=== PATIENT | female | born 1980 | race Caucasian/White ===

== ENCOUNTER 2021-05-21 12:02 | Outpatient (REF) | payer MEDICAID, SELFPAY ==
[2021-05-21 13:19] LABS: Alanine Aminotransferase 14 U/L (0-31); Alkaline Phosphatase 52 U/L (39-117); Aspartate Amino Transferase 14 U/L (5-31); Bilirubin Direct < 0.2 mg/dL (0.0-0.5); Bilirubin Total 0.3 mg/dL (0.0-1.0); Total Protein 6.9 g/dL (6.5-8.0)
[2021-05-27 00:51] LABS: FIB-ALT 12 U/L (6-29); FIB-Alpha-2-Macroglobulin 218 mg/dL (106-279); FIB-Apolipoprotein A1 148 mg/dL (101-198); FIB-GGT 16 U/L (3-55); FIB-Haptoglobin 163 mg/dL (43-212); FIB-Total Bilirubin 0.3 mg/dL (0.2-1.2); Liver Fibrosis Score 0.08; Liver Fibrosis Stage F0; Nec Inflam Act Grade A0; Nec Inflam Act Score 0.03
[2021-05-28 12:21] LABS: Alpha Fetoprotein 1.9 ng/mL
== END 2021-05-21 12:03 | disposition home or self-care (01) ==
LOC: HO.LAB 12:02
PROVIDERS: PCP Student in an Organized Health Care Education/Training Program; Visit Provider Internal Medicine
DX: Z86.19 Personal history of other infectious and parasitic diseases (principal)
CPT/HCPCS: 36415; 80076; 81596; 82105

== ENCOUNTER 2021-06-11 10:27 | Outpatient (REF) | payer MEDICAID, SELFPAY ==
--- NOTE | ~2021-06-11 | US_ITS ---
EXAMINATION: US ABDOMEN COMPLETE CLINICAL INFORMATION: History of hepatitis C. COMPARISON: None TECHNIQUE: Real-time imaging of the abdominal viscera. FINDINGS: PANCREAS: Normal. ABDOMINAL AORTA: The proximal, mid, and distal segments are normal in caliber. INFERIOR VENA CAVA: Visualized portions are normal. LIVER: Normal. The liver is normal in size. The liver contour is normal. Parenchymal echogenicity is normal. No focal hepatic lesion. There is no intrahepatic biliary duct dilatation seen. GALLBLADDER: Although not discretely interrogated by the supervisor broadloom there is suspected to be probable shadowing gallstone, image 43 and 42. Negative sonographic Kinsey sign. No wall thickening or pericholecystic fluid to suggest acute cholecystitis. COMMON BILE DUCT: Common bile duct measures mildly greater than expected for age measuring 0.7 cm in diameter although is this does not appear significantly changed from 2009 where it measured 0.7 cm. RIGHT KIDNEY: Normal. No hydronephrosis. No renal calculi or focal parenchymal lesions. The kidney measures 11.4 cm in maximum dimension. LEFT KIDNEY: Normal. No hydronephrosis. No renal calculi or focal parenchymal lesions. The kidney measures 11.1 cm in maximum dimension. SPLEEN: Spleen is enlarged. The spleen measures 13.4 cm in maximum dimension. FREE FLUID: None. US/US abdomen complete IMPRESSION: Unremarkable sonographic appearance of the liver. No discrete liver lesion. Although not discretely interrogated by the supervisor broadloom there is suspected to be cholelithiasis without secondary findings of acute cholecystitis. Common bile duct measures minimally greater than expected for age at 7 mm although some of this appears similar to 2009. Mild splenomegaly
== END 2021-06-11 10:28 | disposition home or self-care (01) ==
LOC: HO.US 10:27
PROVIDERS: Visit Provider Internal Medicine
DX: Z86.19 Personal history of other infectious and parasitic diseases (principal)
CPT/HCPCS: 76700

== ENCOUNTER 2021-06-26 09:03 | Day surgery (SDC) | payer MEDICAID, SELFPAY ==
--- NOTE | 2021-06-25 09:49 | HO.ANESPROP2 ---
Documented by User: Havne Jacob NP 06/25/21 09:50 HPI - Anesthesia Eval Consult details Narrative: 40yo F for Colonoscopy Suboxone daily [facility] Past Medical History Medical History Anxiety and depression History of COVID-19 History of intravenous drug abuse Hx of hepatitis C Smoker Social History Social History Patient Tobacco Use Status: Current everyday Tobacco user Tobacco use type: Cigarette Cigarettes Per Day: 15 Smoked in Last 30 Days: Yes Use of substances other than those prescribed or required for medical reasons: No Are you DNR?: No Advance Directives: No Advance Directives Information Provided: Yes Recently lost weight without trying: No Nutrition Risks: No Nutritional Risk Meds Allergies Allergy/AdvReac Type Severity Reaction Status Date / Time azithromycin AdvReac Mild Vomiting Verified 06/26/21 09:25 Home Medications Medication Instructions Recorded Confirmed Last Taken Type buprenorphine 8 mg-naloxone 2 mg 2 strip SUBLINGUAL DAILY 06/22/21 06/22/21 06/26/21 History sublingual film (Suboxone) bupropion HCl 300 mg 24 hr tablet, 1 tab PO QAM 06/22/21 06/22/21 Unknown History extended release inulin-chromium picolinate 2 1 tab PO DAILY 06/22/21 06/22/21 Unknown History gram-100 mcg chewable tablet (Fiber Select Gummies) naproxen sodium 220 mg capsule 220 mg PO Q12H PRN 06/22/21 06/22/21 Unknown History (Aleve) omega 1-gjk-uvt-fish oil 1,000 mg 1 cap PO DAILY 06/22/21 06/22/21 Unknown History (120 mg-180 mg) capsule (Fish Oil) sertraline 100 mg tablet 1.5 tab PO DAILY 06/22/21 06/22/21 Unknown History turmeric 400 mg capsule mg PO 06/22/21 Unknown History Exam Exam Date and Time: June 25, [id number] Assessment and Plan Assessment Anesthesia Assessment: Chart Reviewed Documented by User: Sergio Ro MD 06/26/21 10:12 [facility] Past Medical History Medical History Anxiety and depression History of COVID-19 History of intravenous drug abuse Hx of hepatitis C Smoker Family History Family history of problems with anesthesia: No Surgical History History of Problems with Anesthesia: No Social History Social History Patient Tobacco Use Status: Current everyday Tobacco user Tobacco use type: Cigarette Cigarettes Per Day: 15 Smoked in Last 30 Days: Yes Use of substances other than those prescribed or required for medical reasons: No Are you DNR?: No Advance Directives: No Advance Directives Information Provided: Yes Recently lost weight without trying: No Nutrition Risks: No Nutritional Risk Meds Allergies Allergy/AdvReac Type Severity Reaction Status Date / Time azithromycin AdvReac Mild Vomiting Verified 06/26/21 09:25 Home Medications Medication Instructions Recorded Confirmed Last Taken Type buprenorphine 8 mg-naloxone 2 mg 2 strip SUBLINGUAL DAILY 06/22/21 06/22/21 06/26/21 History sublingual film (Suboxone) bupropion HCl 300 mg 24 hr tablet, 1 tab PO QAM 06/22/21 06/22/21 Unknown History extended release inulin-chromium picolinate 2 1 tab PO DAILY 06/22/21 06/22/21 Unknown History gram-100 mcg chewable tablet (Fiber Select Gummies) naproxen sodium 220 mg capsule 220 mg PO Q12H PRN 06/22/21 06/22/21 Unknown History (Aleve) omega 4-idg-ily-fish oil 1,000 mg 1 cap PO DAILY 06/22/21 06/22/21 Unknown History (120 mg-180 mg) capsule (Fish Oil) sertraline 100 mg tablet 1.5 tab PO DAILY 06/22/21 06/22/21 Unknown History turmeric 400 mg capsule mg PO 06/22/21 Unknown History Exam Airway Mallampati Class: II TM Dist: >3cm Neck ROM: Full Assessment and Plan Assessment Anesthesia Assessment: Anesthesia Plan Discussed Final Anesthetic Review Family History of Problems with Anesthesia: No History of Problems with Anesthesia: No NPO: Yes ASA Class: II and Final Preanesthetic Review: No Changes in Pt Med Stat, Meds/Allgs Chart Reviewed, Consent Obtained/Reviewed and Anes Risks/Benef Reviewed Patient Risk: Low Procedure Risk: Low Anesthetic Plan Anesthetic Plan: MAC: Disposition: Standard PACU
[2021-06-26 09:17] VITALS: BMI 29.2
[2021-06-26 09:35] LABS: UPreg QC Valid YES; Urine Pregnancy NEGATIVE (NEGATIVE)
[2021-06-26 09:50] VITALS: BP 125/56; PULSE 73; RESP 16; TEMP 36.6; O2SAT 96
[2021-06-26] MEDS: Lactated Ringers 1,000 ML 100 ML IVCONT (10:01)
--- NOTE | 2021-06-26 11:33 | PM.OP ---
Brief Operative Note Date of Service: 06/26/21 Pre-op diagnosis: Screening, Family history of colon cancer Post-op diagnosis: other (Colon polyp) Procedure: Colonoscopy to the cecum and TI with cold snare polypectomy Surgeon: Chandana Castaneda Anesthesia: MAC Was an [address] Supervisor used for this Procedure?: No Estimated blood loss (mL): 2.0 Pathology: other (A. Polyp at 20cm) Condition: stable Disposition: PACU
[2021-06-26 11:37] VITALS: BP 93/63; PULSE 84; RESP 16; TEMP 36.8; O2SAT 98
[2021-06-26 11:52] VITALS: BP 104/53; PULSE 63; RESP 16; O2SAT 96
[2021-06-26 12:05] VITALS: BP 113/40; PULSE 72; RESP 16; TEMP 36.8; O2SAT 96
--- NOTE | 2021-06-26 22:42 | OP_ITS ---
SURGEON: Chandana Castaneda MD INDICATIONS: The patient presents for evaluation of colorectal cancer screening and family history of colon cancer. Full consent was obtained from her for this, including risks of bleeding and perforation. PREOPERATIVE DIAGNOSIS: POSTOPERATIVE DIAGNOSIS: PROCEDURE PERFORMED: Colonoscopy to cecum and terminal ileum with cold snare polypectomy. ESTIMATED BLOOD LOSS: COMPLICATIONS: ANESTHESIA: Monitored anesthesia care. ASSISTANTS: SPECIMENS: PREOPERATIVE DIAGNOSES: Colorectal cancer screening and family history of colon cancer. POSTOPERATIVE DIAGNOSES: Colorectal cancer screening and family history of colon cancer, small colon polyp, internal hemorrhoids. DESCRIPTION OF PROCEDURE: The patient was placed in the left lateral decubitus position. The digital rectal exam revealed no abnormalities. The Olympus video pediatric colonoscope was entered into the rectum and advanced easily to the cecum. Once in the cecum, I did identify normal-appearing cecal pouch with appendiceal orifice and a normal-appearing ileocecal valve. The terminal ileum was cannulated and appeared normal. The scope was withdrawn back in the colon. The entire cecum and ileocecal valve appeared normal. The scope was slowly withdrawn assessing all mucosal surfaces carefully. Preparation was excellent. At 20 cm was an approximately 5 mm polyp, which was removed by cold snare polypectomy and recovered by suction. The polypectomy site appeared clean, without any sign of residual polyp nor any significant bleeding. I did not visualize any other polyps, colitis, nor angiodysplasia. In the rectum, scope was retroflexed visualizing internal hemorrhoids, but no other pathology. The rectal mucosa appeared normal. The scope was straightened and withdrawn from the patient. She tolerated the procedure well and was returned to recovery area in stable condition. IMPRESSION: 1. Small colon polyp, status post cold snare polypectomy. 2. Internal hemorrhoids. PLAN: The results of the pathology will be checked. Even if this is not a tubular adenoma, I would recommend a followup colonoscopy in 5 years given her family history. She will otherwise see me in 1 year for a followup visit in regard to the previous history of hepatitis C. This has been discussed with her mother. MD AMPARO Knight/WATSON / [id number]
== END 2021-06-26 12:35 | disposition home or self-care (01) ==
PROVIDERS: Nurse Practitioner; PCP Student in an Organized Health Care Education/Training Program; Visit Provider Internal Medicine
PROC: 0DJD8ZZ Inspection of Lower Intestinal Tract, Via Natural or Artificial Opening Endoscopic (ICD-10-PCS; CPT 45378; principal; 2021-06-26 10:10)
DX: Z12.11 Encounter for screening for malignant neoplasm of colon (principal); Z80.0 Family history of malignant neoplasm of digestive organs; K63.5 Polyp of colon; K64.8 Other hemorrhoids; F41.8 Other specified anxiety disorders; F11.20 Opioid dependence, uncomplicated; F17.210 Nicotine dependence, cigarettes, uncomplicated; Z86.19 Personal history of other infectious and parasitic diseases; Z86.16 Personal history of COVID-19
CPT/HCPCS: 45385; 81025; 88305; J2370

== ENCOUNTER 2021-09-29 08:56 | Outpatient (REF) | payer MEDICAID, SELFPAY ==
--- NOTE | ~2021-09-29 | US_ITS ---
EXAMINATION: US ABDOMEN LIMITED CLINICAL INFORMATION: Abnormal ultrasound of gallbladder. COMPARISON: Ultrasound abdomen complete 06/11/2021 and 04/30/2008. TECHNIQUE: Real-time imaging of the right upper quadrant abdominal viscera. FINDINGS: PANCREAS: Normal. LIVER: The liver is normal in size. The liver contour is normal. The liver is echogenic. No focal hepatic lesion. There is no intrahepatic biliary duct dilatation seen. GALLBLADDER: The gallbladder wall is thickened measuring 0.2 cm. The gallbladder is physiologically distended without evidence of stones, sludge, polyps, wall thickening or pericholecystic fluid. COMMON BILE DUCT: Normal in caliber measuring 0.6 cm in diameter. RIGHT KIDNEY: Normal. No hydronephrosis. No renal calculi or focal parenchymal lesions. The kidney measures 10.2 cm in maximum dimension. FREE FLUID: None. US/US abdomen limited IMPRESSION: Mildly echogenic liver without focal lesion. The rest of the abdominal ultrasound is unremarkable.
== END 2021-09-29 08:57 | disposition home or self-care (01) ==
LOC: HO.US 08:56
PROVIDERS: Visit Provider Internal Medicine
DX: R93.2 Abnormal findings on diagnostic imaging of liver and biliary tract (principal)
CPT/HCPCS: 76705

== ENCOUNTER 2022-11-15 14:07 | Outpatient (REF) | payer MEDICAID, SELFPAY ==
[2022-11-15 18:15] LABS: Alanine Aminotransferase 8 U/L (0-31); Alkaline Phosphatase 52 U/L (39-117); Aspartate Amino Transferase 10 U/L (5-31); Bilirubin Direct < 0.2 mg/dL (0.0-0.5); Bilirubin Total 0.2 mg/dL (0.0-1.0); Total Protein 7.2 g/dL (6.5-8.0)
== END 2022-11-15 14:08 | disposition home or self-care (01) ==
LOC: HO.CHCLDS 14:07
PROVIDERS: Visit Provider Family Medicine
DX: F11.20 Opioid dependence, uncomplicated (principal)
CPT/HCPCS: 36415; 80076

== ENCOUNTER 2024-01-30 11:13 | Outpatient (REF) | payer MEDICAID, SELFPAY ==
--- OUTSIDE RECORDS SUMMARY | 2024-01-30 11:16 | XMS_ITS | Patient Health Record ---
Author Organization [facility] Address [address] [place] [address] Care Team Providers Care Blueprint Maker Name Role Phone YUMIKO SANDOVLA Primary Care Provider Chandana Ruiz [phone] REASON FOR REFERRAL No Information MEDICATIONS Medication SIG (Take, Route, Frequency, Duration) Notes Start Date End Date Status Turmeric 500 MG as directed Orally Active Aleve 220 MG 1 tablet with food o r milk as needed Orally every 12 hrs Active Acetaminophen 500 MG 1 capsule as needed Orally every 6 hrs Active Sertraline HCl 150 MG 1 capsule Orally O nce a day for 30 day(s) Active Fiber Adult Gummies 2 GM as directed Orally Active Probiotic - as directed Orally Active Fish Oil 1000 MG 1 capsule Orally Onc e a day for 30 day(s) Active Suboxone 8-2 MG 1 film under the ton patrice and allow to dissolve Sublingual Once a day Active IMMUNIZATIONS Vaccine Route Administration Date Status Comme nts Influenza Unknown 02/24/2021 Administered SOCIAL HISTORY Tobacco Use: Social History Observation Description Date Details (start date - stop date) Current Smoker NA - NA Sex Assigned At : Social History Observation Description Sex Assigned At Unknown Tobacco Use/Smoking Question Answer Notes Patient is a current smoker Alcohol Screen Question Answer Notes Did you have a drink containing alcohol in the p ast year? No Points 0 Interpretation Negative PROBLEMS Problem Type ICD Code Onset Dates Problem Status W/U Status Risk SNOMED Code Notes Problem Family history of colon cancer (Z80.0) Active confirmed 098995818 Problem Encounter for screening for malignant neoplasm of colon (Z12.11) Active confirmed 593861740 Problem History of hepatitis C (Z86.19) Active confirmed 59322932096313 Problem Preprocedural examination (Z01.818) Active confirmed 895997346771634 Problem Abnormal ultrasound of gallbladder (R93.2) Active confirmed Abnormal findin gs diagnostic imaging of liver and biliary tract (596770328) PLAN OF TREATMENT Pending Test Test Name Order Date LIVER PROFILE 05/21/2021 ALPHA-FETOPROTEIN,TUMOR MARKER 2 US ABD 05/21/2021 HCV LIVER FIBROSIS, FIBRO TEST 2 US abdomen limited 07/05/2021 Future Test Test Name Order Date COLONOSCOPY 05/21/2021 Insurance Providers Payer Name Payer Address Payer Phone Subscriber Number Group Number Insured Name Patient Relationship to Insured Coverage Start Date Coverage End Date [employer] OF [employer] [address] [place] [id number] KISHOR RIVERA Self - patient is the insured MEDICAL (GENERAL) HISTORY Medical History History ICD Code Hep C in past--treated with Interferon a nd Ribavirin for 6 months COVID 02/2021- mild flu Denies [place],DM,CVA,Lung disease,renal dise ase Depression/anxiety Substance abuse with IV heroin--stopped in 08/2007 Surgical History Surgery Date(Month/Year)
[2024-01-30 14:41] LABS: Alanine Aminotransferase 12 U/L (0-31); Albumin Level 4.1 g/dL (3.5-5.0); Alkaline Phosphatase 56 U/L (39-117); Aspartate Amino Transferase 18 U/L (5-31); Bilirubin Direct < 0.2 mg/dL (0.0-0.5); Bilirubin Total 0.2 mg/dL (0.0-1.0); Total Protein 7.2 g/dL (6.5-8.0)
== END 2024-01-30 11:14 | disposition home or self-care (01) ==
LOC: HO.CHCLDS 11:13
PROVIDERS: Visit Provider Family Medicine
DX: F11.20 Opioid dependence, uncomplicated (principal)
CPT/HCPCS: 36415; 80076